=== PATIENT | female | born 1965 ===

== ENCOUNTER 2025-04-19 12:45 | Inpatient (IN) | payer OTHER ==
[~2025-04-19] VITALS: Ht 121.9 cm; Wt 73.0 kg
[2025-04-19] MEDS ORDERED: MEGARED OMEGA-1 EACH (13:54)
[2025-04-19] MEDS ORDERED: COZAAR25 MG (13:54)
[2025-04-26] MEDS ORDERED: LIDOCAINE HCL 1%/EPINEPHRINE 20ML VIAL IJ ONE (15:30)
[2025-04-26] MEDS ORDERED: levoFLOXacin IN DEXTROSE 5 % 5 MG/ML PIGGYBAG IV ONE (15:30)
[2025-04-26] MEDS ORDERED: BUPIVACAINE HCL 30 ML VIAL IJ ONE (15:30)
[2025-04-26] MEDS ORDERED: METRONIDAZOLE/SODIUM CHLORIDE 500 MG/100 ML PIGGYBACK IV ONE (15:30)
[2025-04-26] MEDS ORDERED: MORPHINE SULFATE 4 MG/ML CARTRIDGE IV PRN (18:00)
[2025-04-26] MEDS ORDERED: OxyCODONE HCL 5 MG TABLET (ROXICODONE) PO PRN (18:00)
[2025-04-26] MEDS ORDERED: ONDANSETRON HCL 2 MG/ML VIAL IV PRN (18:00)
[2025-04-26] MEDS ORDERED: 0.9 % SODIUM CHLORIDE 1,000 ML IV SCH (18:00)
[2025-04-26] MEDS ORDERED: DEXTROSE 50 % IN WATER 0.5 G/ML VIAL IV PRN (18:00)
[2025-04-26] MEDS ORDERED: SUGAMMADEX SODIUM 200 MG/2 ML VIAL IV ONE (18:15)
[2025-04-26] MEDS ORDERED: MORPHINE SULFATE 4 MG/ML VIAL IV ONE ×2 (19:00→20:00)
[2025-04-26] MEDS ORDERED: ACETAMINOPHEN 500 MG GEL..CAP PO SCH (20:00)
[2025-04-26] MEDS ORDERED: CELECOXIB 200 MG CAPSULE PO SCH (21:00)
[2025-04-26] MEDS ORDERED: FAMOTIDINE/PF 20 MG/2 ML VIAL IV PUSH SCH (21:00)
[2025-04-26] MEDS ORDERED: SIMETHICONE 125 MG CAPSULE PO SCH (21:00)
[2025-04-26 22:31] LABS: BASO % 0.1 % (0.1-1.2); EOS # 0.00 (0.04-0.54); EOS % 0.0 % (0.7-7.0); LYMPH # 0.50 (1.18-3.74); LYMPH % 3.6 % (19.3-53.1); MEAN PLATELET VOLUME 10.60 fl (9.4-12.4); MONO # 0.98 (0.24-0.82); MONO % 7.0 % (4.7-12.5); NEUT # 12.51 (1.56-6.13); NEUT % 89.0 % (34.0-71.1); RED CELL DISTRIBUTION WIDTH 11.6 % (11.6-14.4)
[2025-04-27] MEDS ORDERED: METOCLOPRAMIDE HCL 5 MG/ML VIAL IV SCH (01:00)
[2025-04-27] MEDS ORDERED: GABAPENTIN 300 MG CAPSULE PO SCH (01:00)
[2025-04-27 02:47] VITALS: BP 148/70; O2SAT 96
[2025-04-27] MEDS ORDERED: ENALAPRILAT DIHYDRATE 1.25 MG/ML VIAL IV PRN (05:15)
[2025-04-27 07:11] LABS: BUN CREA RATIO 8.0 (7.0-25.0); CREATININE SERUM 0.59 mg/dL (0.55-1.02); GFR 104.32; GLUCOSE FASTING 115.0 mg/dL (65-100); OSMOLALITY SERUM 278.0 MOSM/KG (275-295)
[2025-04-27 07:46] LABS: BASO % 0.2 % (0.1-1.2); EOS # 0.00 (0.04-0.54); EOS % 0.0 % (0.7-7.0); LYMPH # 0.64 (1.18-3.74); LYMPH % 4.9 % (19.3-53.1); MEAN PLATELET VOLUME 9.60 fl (9.4-12.4); MONO # 0.63 (0.24-0.82); MONO % 4.8 % (4.7-12.5); NEUT # 11.82 (1.56-6.13); NEUT % 89.8 % (34.0-71.1); RED CELL DISTRIBUTION WIDTH 11.4 % (11.6-14.4)
[2025-04-27 08:43] VITALS: BP 150/69; O2SAT 97
[2025-04-27] MEDS ORDERED: LACTULOSE 20 G/30 ML BLIST.PACK PO SCH (09:00)
[2025-04-27] MEDS ORDERED: HYOSCYAMINE SULFATE 0.125 MG TAB.SUBL SL SCH (09:00)
[2025-04-27] MEDS ORDERED: LOSARTAN POTASSIUM 25 MG TABLET PO SCH (09:00)
[2025-04-27] MEDS ORDERED: LACTOBACILLUS ACIDOPHILUS 1 CAP CAP PO SCH (09:00)
[2025-04-27] MEDS ORDERED: MAGNESIUM SULFATE IN WATER 50 ML IV NR (09:15)
[2025-04-27 17:00] VITALS: BP 131/59; O2SAT 95
[2025-04-27] MEDS ORDERED: ENOXAPARIN SODIUM 40 MG/0.4 ML SYRINGE SUBCUTANEO SCH (17:00)
[2025-04-28 01:12] VITALS: BP 136/78; O2SAT 96
[2025-04-28 06:45] LABS: BASO % 0.4 % (0.1-1.2); EOS # 0.02 (0.04-0.54); EOS % 0.2 % (0.7-7.0); LYMPH # 1.45 (1.18-3.74); LYMPH % 17.0 % (19.3-53.1); MEAN PLATELET VOLUME 9.70 fl (9.4-12.4); MONO # 0.68 (0.24-0.82); MONO % 8.0 % (4.7-12.5); NEUT # 6.33 (1.56-6.13); NEUT % 74.0 % (34.0-71.1); RED CELL DISTRIBUTION WIDTH 11.9 % (11.6-14.4)
[2025-04-28 07:15] LABS: BUN CREA RATIO 11.0 (7.0-25.0); CREATININE SERUM 0.47 mg/dL (0.55-1.02); GFR 135.63; GLUCOSE FASTING 88.0 mg/dL (65-100); OSMOLALITY SERUM 285.0 MOSM/KG (275-295)
[2025-04-28 08:00] VITALS: BP 142/79; O2SAT 98
[2025-04-28] MEDS ORDERED: POTASSIUM PHOS,M-BASIC-D-BASIC 15 MM in 0.9 % SODIUM CHLORIDE 250 ML IV NR (08:15)
[2025-04-28] MEDS ORDERED: ENOXAPARIN SODIUM 40 MG/0.4 ML SYRINGE SUBCUTANEO SCH (09:00)
[2025-04-28] MEDS ORDERED: POTASSIUM CHLORIDE 20MEQ/100ML H2O PB IV NR ×2 (10:45→17:00)
[2025-04-28 17:49] VITALS: BP 151/80; O2SAT 97
[2025-04-29 02:15] VITALS: BP 150/68; O2SAT 94
[2025-04-29 08:04] VITALS: BP 149/72; O2SAT 97
[2025-04-29] MEDS ORDERED: GABAPENTIN 300 MG CAPSULE PO PRN (15:20)
[2025-04-29 16:00] VITALS: BP 158/74; O2SAT 99
[2025-04-30 02:02] VITALS: BP 141/69; O2SAT 96
[2025-04-30] MEDS ORDERED: INTESTINEX680 M1 PO (07:18)
[2025-04-30] MEDS ORDERED: MIRALAX17 GM PO (07:19)
[2025-04-30] MEDS ORDERED: LEVSIN/SL0.125 MG SL (07:19)
[2025-04-30] MEDS ORDERED: TAMS0.4C PO (07:19)
[2025-04-30 08:00] VITALS: BP 126/63; O2SAT 97
[2025-04-30 17:48] VITALS: BP 138/72; O2SAT 97
== END 2025-04-30 21:49 | disposition home or self-care (01) | DRG 333 ==
LOC: O/R 04-26 10:55 → SURH 04-26 12:45 → OB/GYN 04-26 18:20 → SURH 04-26 18:33
PROVIDERS: Internal Medicine Geriatric Medicine; ADMIT Surgery; ATTEND Surgery
PROC: 0DNN4ZZ Release Sigmoid Colon, Percutaneous Endoscopic Approach (ICD-10-PCS; 2025-04-26)
PROC: 0TQB4ZZ Repair Bladder, Percutaneous Endoscopic Approach (ICD-10-PCS; 2025-04-26)
PROC: 0DJD8ZZ Inspection of Lower Intestinal Tract, Via Natural or Artificial Opening Endoscopic (ICD-10-PCS; 2025-04-26)
PROC: 0DTP4ZZ Resection of Rectum, Percutaneous Endoscopic Approach (ICD-10-PCS; principal; 2025-04-26 16:30)
PROC: BW2GYZZ Computerized Tomography (CT Scan) of Pelvic Region using Other Contrast (ICD-10-PCS; 2025-04-30)
DX: K59.02 Outlet dysfunction constipation (principal); K56.699 Other intestinal obstruction unspecified as to partial versus complete obstruction; N99.72 Accidental puncture and laceration of a genitourinary system organ or structure during other procedure; N81.6 Rectocele